=== PATIENT | male | born 1960 ===

== ENCOUNTER 2024-05-15 18:50 | Emergency (ER) | payer BC ==
[~2024-05-15] VITALS: Ht 182.9 cm; Wt 75.8 kg
[2024-05-15] MEDS ORDERED: LIDOCAINE 2% VISCOUS 6 ML SYR TOP ONE (19:30)
[2024-05-15 19:56] LABS: BILIRUBIN, URINE NEGATIVE (negative); BLOOD/HGB, URINE LARGE (Negative); KETONE, URINE NEGATIVE (Negative); LEUK ESTERASE, URINE SMALL (negative); NITRITE, URINE NEGATIVE (negative)
[2024-05-15 20:02] LABS: RED BLOOD CELLS, URINE 21-40 /hpf (0-5)
[2024-05-15 20:03] LABS: BACTERIA, URINE NONE SEEN /hpf (negative); CASTS, URINE NONE SEEN \\lpf; COLLECTION TYPE, URINE CLEAN CATCH; CRYSTALS, URINE NONE SEEN (0-1+); EPITHELIAL CELLS, URINE NONE SEEN /lpf (0-1+); REFLEX CULTURE, URINE Yes (No)
[2024-05-15] MEDS ORDERED: PHENAZOPYRIDINE HCL 95 MG TAB PO ONE (20:15)
[2024-05-15] MEDS ORDERED: NITROFURANTOIN MONOHYD MACROCR 100 MG CAP PO ONE (20:15)
[2024-05-15] MEDS ORDERED: PYRIDIUM100 MG PO (20:17)
[2024-05-15] MEDS ORDERED: MACROBID 100 M100 MG PO (20:17)
[2024-05-15 20:40] VITALS: BP 143/102
== END 2024-05-15 20:40 | disposition home or self-care (01) ==
LOC: ED 18:50
PROVIDERS: Internal Medicine
DX: N39.0 Urinary tract infection, site not specified (principal); N99.89 Other postprocedural complications and disorders of genitourinary system; R33.9 Retention of urine, unspecified; R31.9 Hematuria, unspecified; R10.9 Unspecified abdominal pain
CPT/HCPCS: 51702; 51798; 81001; 87088; 99283-25